=== PATIENT | female | born 1990 | race African-American/Black ===

== ENCOUNTER 2017-11-04 08:22 | Emergency (ER) | payer SELFPAY ==
[~2017-11-04] VITALS: Ht 157.5 cm; Wt 69.0 kg
[2017-11-04 08:46] VITALS: BP 124/78
[2017-11-04] MEDS ORDERED: FLUORESCEIN SODIUM 1MG/STRIP RIGHTEYE ONE (09:15)
== END 2017-11-04 10:07 | disposition home or self-care (01) ==
LOC: ER 08:59
DX: H10.9 Unspecified conjunctivitis (principal); J06.9 Acute upper respiratory infection, unspecified
CPT/HCPCS: 99283

== ENCOUNTER 2019-01-08 17:12 | Emergency (ER) | payer SELFPAY ==
[~2019-01-08] VITALS: Ht 157.5 cm; Wt 77.0 kg
[2019-01-08 17:27] VITALS: BP 119/78
[2019-01-08] MEDS ORDERED: BACITRACIN ZINC OINT UDPKT TOP ONE (19:30)
== END 2019-01-08 19:42 | disposition home or self-care (01) ==
LOC: ER 17:12
DX: S91.202A Unspecified open wound of left great toe with damage to nail, initial encounter (principal); F17.200 Nicotine dependence, unspecified, uncomplicated; W22.8XXA Striking against or struck by other objects, initial encounter; Y93.89 Activity, other specified; Y92.89 Other specified places as the place of occurrence of the external cause; Y99.8 Other external cause status
CPT/HCPCS: 11730; 99283